=== PATIENT | male | born 1925 | race Caucasian/White ===

== ENCOUNTER 2017-03-08 14:27 | Emergency (ER) | payer MEDICARE, OTHER ==
[2017-03-08 15:43] LABS: Hemoglobin 14.7 g/dL (14.0-18.0); Mean Corpuscular HGB CONC 31.9 g/dL (32.0-36.0); Mean Corpuscular Hemoglobin 33.1 pg (27.0-31.0); Mean Platelet Volume 8.2 fL (7.4-10.4); Platelet Count 195 thou/uL (130-400); RBC Distribution Width 13.9 % (11.5-14.5); Red Blood Cell (RBC) Count 4.44 mill/uL (4.70-6.10); White Blood Cell (WBC) Count 5.6 thou/uL (4.8-10.8)
[2017-03-08 16:04] LABS: ALT (SGPT) 11 U/L (8-55); AST (SGOT) 21 U/L (5-34); Albumin 3.5 g/dL (3.4-4.8); Alkaline Phosphatase 51 U/L (40-150); Anion Gap 17 mmol/L (10-20); BUN (Urea Nitrogen) 18 mg/dL (8.4-25.7); Bilirubin, Total 0.4 mg/dL (0.2-1.2); CK (CPK) 149 U/L (30-200); Calc. Creatinine Clearance 0 mL/min (70-130); Carbon Dioxide 23 mmol/L (23-31); Chloride 102 mmol/L (98-107); Estimated GFR-MDRD 55; Glucose 200 mg/dL (83-110); Potassium 4.7 mmol/L (3.5-5.1); Protein, Total 7.5 g/dL (5.8-8.1); Sodium 137 mmol/L (136-145)
[2017-03-08 16:06] LABS: Band 8 % (5-11); Lymphocytes 12 % (21-51); MDiff Complete? YES; Monocytes 9 % (0-10); Neutrophil 71 % (42-75); PLT Morphology Comment Appears Adequate
[2017-03-08 16:09] LABS: CKMB 1.8 ng/mL (0-6.6); Troponin I 0.024 ng/mL (< 0.028)
--- NOTE | 2017-03-08 16:57 | RAD ---
CHEST ONE VIEW: HISTORY: Emergency exam. COMPARISON: Chest, one view, 09/12/2016. 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 There is chronic scarring in the lung bases. No pneumothora x. Severe degenerative change at the left glenohumeral joint with rotator cuff arthropathy. Also severe degenerative change in the right glenohumeral joint. IMPRESSION: Ectasia of the thoracic aorta. No acute intrathoracic abnormality. POS: [facility]
[2017-03-08] MEDS ORDERED: Oseltamivir 75 MG CAP PO SCH (17:45)
== END 2017-03-08 19:57 | disposition home or self-care (01) ==
LOC: ERS 14:27
DX: J11.1 Influenza due to unidentified influenza virus with other respiratory manifestations (principal); K21.9 Gastro-esophageal reflux disease without esophagitis; I10 Essential (primary) hypertension; F03.90 Unspecified dementia, unspecified severity, without behavioral disturbance, psychotic disturbance, mood disturbance, and anxiety; Z79.899 Other long term (current) drug therapy
CPT/HCPCS: 36415; 71045; 80053; 82553; 84484; 85025; 93005